=== PATIENT | male | born 1950 | race African-American/Black ===

== ENCOUNTER 2019-12-25 12:55 | Emergency (ER) | payer MEDICARE ==
[~2019-12-25] VITALS: Ht 182.9 cm; Wt 90.9 kg
[2019-12-25] MEDS ORDERED: ATEN-72 PO (13:26)
[2019-12-25] MEDS ORDERED: LISI-661 PO (13:26)
[2019-12-25 15:38] VITALS: BP 149/92
== END 2019-12-25 16:03 | disposition home or self-care (01) ==
LOC: EMS 13:01
DX: I10 Essential (primary) hypertension (principal); G47.00 Insomnia, unspecified
CPT/HCPCS: 99283; Z7502